=== PATIENT | male | born 1980 | race Caucasian/White ===

== ENCOUNTER 2022-10-30 09:08 | Emergency (ER) | payer BC ==
[2022-10-30] MEDS ORDERED: Ondansetron 4 MG/2 ML SDV IVPUSH ONE (10:04)
[2022-10-30] MEDS ORDERED: Sodium Chloride 0.9% 10 ML Syringe FLUSH PRN ×2 (10:04→12:31)
[2022-10-30] MEDS ORDERED: Sodium Chloride 0.9% 1,000 ML IV SCH (10:15)
[2022-10-30] MEDS ORDERED: Iopamidol 612 MG/ML 50 ML SDV IVPUSH ONE (12:31)
[2022-10-30] MEDS ORDERED: Iopamidol 612 MG/ML 100 ML Bottle IVPUSH ONE (12:31)
[2022-10-30] MEDS ORDERED: Acetaminophen 325 MG Tab PO ONE ×2 (13:30→13:31)
== END 2022-10-30 15:05 | disposition home or self-care (01) ==
LOC: JD.ED 09:08
DX: A08.4 Viral intestinal infection, unspecified (principal); R91.1 Solitary pulmonary nodule; J45.909 Unspecified asthma, uncomplicated
CPT/HCPCS: 36415; 74177; 80053; 83690; 83735; 85025; 86140; 96361; 96374; 99284; A9270; J2405; J3490; J7030; Q9967

== ENCOUNTER 2023-10-14 16:20 | Emergency (ER) | payer OTHER, BC ==
[2023-10-14] MEDS ORDERED: Bupivacaine 0.5% 10 ML SDV INJECT ONE (16:44)
[2023-10-14] MEDS ORDERED: Diphtheria,Pertussis(Acell),Tetanus Vaccine 0.5 ML Syringe IM ONE (16:44)
[2023-10-14] MEDS ORDERED: Lidocaine 1% 10 ML MDV INJECT ONE (16:44)
== END 2023-10-14 18:16 | disposition home or self-care (01) ==
LOC: JD.ED 16:20
DX: S63.125A Dislocation of interphalangeal joint of left thumb, initial encounter (principal); S61.012A Laceration without foreign body of left thumb without damage to nail, initial encounter; J45.909 Unspecified asthma, uncomplicated; Z23 Encounter for immunization; Z86.16 Personal history of COVID-19; Z79.899 Other long term (current) drug therapy; W01.0XXA Fall on same level from slipping, tripping and stumbling without subsequent striking against object, initial encounter; Y92.65 Oil rig as the place of occurrence of the external cause
CPT/HCPCS: 12001; 73140; 90471; 90715; 99283; J0665; 26770; J3490